=== PATIENT | male | born 1965 | race Caucasian/White ===

== ENCOUNTER 2023-03-03 19:59 | Emergency (ER) | payer OTHER ==
[2023-03-03 21:02] LABS: BASOPHILS ABSOLUTE AUTO 0.04 K/uL (0.02-0.10); BASOPHILS PERCENT AUTO 0.3 % (0.0-0.5); EOSINOPHILS ABSOLUTE AUTO 0.27 K/uL (0.04-0.40); EOSINOPHILS PERCENT AUTO 2.1 % (1.0-5.0); HEMATOCRIT 47.7 % (40.0-54.0); HEMOGLOBIN 16.5 g/dL (13.0-18.0); LYMPHOCYTES ABSOLUTE AUTO 1.22 K/uL (1.50-4.00); LYMPHOCYTES PERCENT AUTO 9.5 % (20.0-40.0); MEAN CORPUSCULAR HEMOGLOBIN 30.8 pg (27.0-32.0); MEAN CORPUSCULAR HGB CONC 34.6 g/dL (31.0-35.0); MEAN CORPUSCULAR VOLUME 89 fL (76-96); MONOCYTES PERCENT AUTO 9.3 % (3.0-10.0); NEUTROPHILS ABSOLUTE AUTO 10.11 K/uL (2.00-7.50); NEUTROPHILS PERCENT AUTO 78.8 % (45.0-70.0); PLATELET COUNT,PLT 215 K/uL (150-400); RED BLOOD CELL COUNT 5.35 M/uL (4.50-6.50); RED CELL DISTRIBUTION WIDTH 12.8 % (11.0-16.0); WHITE BLOOD CELL COUNT,WBC 12.8 K/uL (4.0-11.0)
[2023-03-03 21:21] LABS: AMYLASE 48 U/L (25-115); LIPASE 25 U/L (16-77)
[2023-03-03 21:26] LABS: A/G RATIO 1.1 (0.8-2.0); ALBUMIN 3.9 g/dL (3.4-5.0); ANION GAP 12.2 mmol/L (5.0-15.0); BUN/CREATININE RATIO 11.3 (6-25); CALCIUM 9.5 mg/dL (8.5-10.1); CARBON DIOXIDE,CO2 29.6 mmol/L (21.0-32.0); CREATININE 1.33 mg/dL (0.70-1.30); EST CRCL DRUG DOSING (CG) 62.51 mL/min; POTASSIUM,K 3.8 mmol/L (3.5-5.1); PROTEIN TOTAL,TP 7.5 g/dL (6.4-8.2)
[2023-03-03 21:50] LABS: APPEARANCE,URINE SLIGHTLY CLOUDY (CLEAR); BILIRUBIN,URINE NEGATIVE (NEGATIVE); COLOR,URINE YELLOW; GLUCOSE,URINE NEGATIVE (NEGATIVE); KETONES,URINE NEGATIVE (NEGATIVE); PH,URINE 5.5 (5.0-8.0); PROTEIN,URINE NEGATIVE (NEGATIVE)
[2023-03-03 21:51] LABS: LEUKOCYTE ESTERASE,URINE NEGATIVE (NEGATIVE); NITRITE,URINE NEGATIVE (NEGATIVE); OCCULT BLOOD,URINE TRACE-INTACT (NEGATIVE); UROBILINOGEN,URINE 0.2 E.U./dL (0.2-1.0)
[2023-03-03 21:52] LABS: RBC,URINE 0-5 /HPF; WBC,URINE 0-5 /HPF
[2023-03-03] MEDS: Ketorolac 30 MG/ML SDV IM ONE (22:45)
[2023-03-03] MEDS ORDERED: traMADol 50 MG Tab ONE (23:00)
[2023-03-03] MEDS ORDERED: Amoxicillin/Clavulanate K 875-125 MG Tab ONE (23:00)
== END 2023-03-03 23:45 | disposition home or self-care (01) ==
LOC: LB.ED 19:59
DX: K57.32 Diverticulitis of large intestine without perforation or abscess without bleeding (principal); Z79.899 Other long term (current) drug therapy
CPT/HCPCS: 36415; 74176; 80053; 81001; 82150; 83690; 84484; 85025; 99283; 99284; A9270-GY

== ENCOUNTER 2023-08-12 10:26 | Emergency (ER) | payer OTHER ==
[2023-08-12] MEDS ORDERED: hydrOXYzine HCl 25 MG Tab PO ONE (11:07)
[2023-08-12] MEDS ORDERED: hydrOXYzine HCl 25 MG Tab PO SCH (11:15)
== END 2023-08-12 12:23 | disposition home or self-care (01) ==
LOC: LB.ED 10:26
DX: F41.9 Anxiety disorder, unspecified (principal)
CPT/HCPCS: 99283; A9270-GY

== ENCOUNTER 2023-09-16 23:34 | Inpatient (IN) | payer OTHER ==
[2023-09-16] MEDS ORDERED: Sodium Chloride 0.9% 10 ML Syringe FLUSH PRN (23:46)
[2023-09-17 00:03] LABS: BASOPHILS ABSOLUTE AUTO 0.02 K/uL (0.02-0.10); BASOPHILS PERCENT AUTO 0.3 % (0.0-0.5); EOSINOPHILS ABSOLUTE AUTO 0.18 K/uL (0.04-0.40); EOSINOPHILS PERCENT AUTO 2.6 % (1.0-5.0); HEMATOCRIT 51.7 % (40.0-54.0); HEMOGLOBIN 17.3 g/dL (13.0-18.0); LYMPHOCYTES ABSOLUTE AUTO 1.35 K/uL (1.50-4.00); LYMPHOCYTES PERCENT AUTO 19.3 % (20.0-40.0); MEAN CORPUSCULAR HEMOGLOBIN 29.9 pg (27.0-32.0); MEAN CORPUSCULAR HGB CONC 33.5 g/dL (31.0-35.0); MEAN CORPUSCULAR VOLUME 89 fL (76-96); MEAN PLATELET VOLUME 10.2 fL (6.0-10.0); MONOCYTES ABSOLUTE AUTO 0.99 K/uL (0.20-0.80); MONOCYTES PERCENT AUTO 14.2 % (3.0-10.0); NEUTROPHILS ABSOLUTE AUTO 4.45 K/uL (2.00-7.50); NEUTROPHILS PERCENT AUTO 63.6 % (45.0-70.0); PLATELET COUNT,PLT 190 K/uL (150-400); RED BLOOD CELL COUNT 5.78 M/uL (4.50-6.50); RED CELL DISTRIBUTION WIDTH 13.2 % (11.0-16.0)
[2023-09-17] MEDS: Morphine 4 MG/ML VIAL IVPUSH ONE (00:15)
[2023-09-17 00:18] LABS: A/G RATIO 1.2 (0.8-2.0); ALBUMIN 3.9 g/dL (3.4-5.0); ANION GAP 13.3 mmol/L (5.0-15.0); BUN/CREATININE RATIO 11.4 (6-25); CALCIUM 8.7 mg/dL (8.5-10.1); CARBON DIOXIDE,CO2 26.4 mmol/L (21.0-32.0); CREATININE 1.4 mg/dL (0.70-1.30); EST CRCL DRUG DOSING (CG) 59.38 mL/min; POTASSIUM,K 3.7 mmol/L (3.5-5.1); PROTEIN TOTAL,TP 7.2 g/dL (6.4-8.2)
[2023-09-17] MEDS: Ondansetron 4 MG/2 ML SDV IVPUSH ONE (00:21)
[2023-09-17] MEDS: Ondansetron 4 MG/2 ML SDV ONE (00:25)
[2023-09-17] MEDS: Morphine 4 MG/ML VIAL ONE (00:26)
[2023-09-17] MEDS: fentaNYL 100 MCG/2 ML SDV IVPUSH ONE (00:27)
[2023-09-17] MEDS: fentaNYL 100 MCG/2 ML SDV ONE (00:32)
[2023-09-17] MEDS: Sodium Chloride 0.9% 1,000 ML IV SCH (00:33)
[2023-09-17] MEDS: Iopamidol 612 MG/ML 100 ML Bottle IV PRN (00:55)
[2023-09-17] MEDS: Sodium Chloride 0.9% 50 ML SDV FLUSH SCH (00:55)
[2023-09-17] MEDS ORDERED: Benzocaine 20% Oral Spray 59.2 ML Canister MUCMEM ONE (01:12)
[2023-09-17] MEDS ORDERED: fentaNYL 100 MCG/2 ML SDV IVPUSH SCH (01:15)
[2023-09-17] MEDS ORDERED: Benzocaine/Butamben/Tetracaine Top Spray 56 GM Canister TOP SCH (02:15)
[2023-09-17] MEDS: Benzocaine/Butamben/Tetracaine Top Spray 56 GM Canister TOP PRN (02:16)
[2023-09-17] MEDS: Lactated Ringers 1,000 ML IV SCH (03:45)
[2023-09-17 17:05] LABS: APPEARANCE,URINE CLEAR (CLEAR); BILIRUBIN,URINE NEGATIVE (NEGATIVE); COLOR,URINE YELLOW; GLUCOSE,URINE NEGATIVE (NEGATIVE); KETONES,URINE NEGATIVE (NEGATIVE); LEUKOCYTE ESTERASE,URINE NEGATIVE (NEGATIVE); NITRITE,URINE NEGATIVE (NEGATIVE); OCCULT BLOOD,URINE SMALL (NEGATIVE); PH,URINE 5.5 (5.0-8.0); PROTEIN,URINE NEGATIVE (NEGATIVE); UROBILINOGEN,URINE 0.2 E.U./dL (0.2-1.0)
[2023-09-17 17:06] LABS: WBC,URINE NOT SEEN /HPF
[2023-09-17] MEDS: HYDROmorphone 2 MG/ML Syringe IV PRN (17:46)
[2023-09-17] MEDS ORDERED: Ondansetron 4 MG/2 ML SDV IVPUSH PRN (18:06)
[2023-09-18] MEDS: LORazepam 2 MG/ML SDV IVPUSH PRN (02:49)
[2023-09-18] MEDS: Ketorolac 30 MG/ML SDV IVPUSH ONE (11:35)
[2023-09-18] MEDS: Pantoprazole 40 MG Vial IVPUSH SCH (11:37)
[2023-09-19] MEDS: Ketorolac 60 MG/2 ML SDV IVPUSH ONE (04:19)
[2023-09-19 10:45] LABS: HEMATOCRIT 47.8 % (40.0-54.0); HEMOGLOBIN 15.6 g/dL (13.0-18.0); MEAN CORPUSCULAR HEMOGLOBIN 29.9 pg (27.0-32.0); MEAN CORPUSCULAR HGB CONC 32.6 g/dL (31.0-35.0); MEAN PLATELET VOLUME 9.5 fL (6.0-10.0); RED BLOOD CELL COUNT 5.21 M/uL (4.50-6.50); RED CELL DISTRIBUTION WIDTH 12.2 % (11.0-16.0); WHITE BLOOD CELL COUNT,WBC 9.3 K/uL (4.0-11.0)
[2023-09-19] MEDS: Dextrose 5%-0.9% NaCl with KCl 1,000 ML IV SCH (10:54)
[2023-09-19] MEDS: Bisacodyl 10 MG Supp RECTAL SCH (10:55)
[2023-09-19 11:16] LABS: A/G RATIO 1.2 (0.8-2.0); ALBUMIN 3.3 g/dL (3.4-5.0); ANION GAP 16.5 mmol/L (5.0-15.0); BUN/CREATININE RATIO 11.5 (6-25); CALCIUM 8.2 mg/dL (8.5-10.1); CARBON DIOXIDE,CO2 26.1 mmol/L (21.0-32.0); CREATININE 1.13 mg/dL (0.70-1.30); EST CRCL DRUG DOSING (CG) 73.57 mL/min; POTASSIUM,K 3.6 mmol/L (3.5-5.1); PROTEIN TOTAL,TP 6.1 g/dL (6.4-8.2)
[2023-09-19] MEDS: Docusate Sodium 100 MG Cap PO SCH (18:15)
[2023-09-19] MEDS: Docusate Sodium 100 MG Cap ONE (21:07)
[2023-09-20] MEDS: Ketorolac 60 MG/2 ML SDV IVPUSH ONE (20:45)
[2023-09-20] MEDS: Tamsulosin 0.4 MG Cap.ER PO ONE (20:47)
[2023-09-21 08:45] LABS: HEMATOCRIT 50.3 % (40.0-54.0); HEMOGLOBIN 15.7 g/dL (13.0-18.0); MEAN CORPUSCULAR HEMOGLOBIN 29.7 pg (27.0-32.0); MEAN CORPUSCULAR HGB CONC 31.2 g/dL (31.0-35.0); MEAN PLATELET VOLUME 10.2 fL (6.0-10.0); RED BLOOD CELL COUNT 5.28 M/uL (4.50-6.50); RED CELL DISTRIBUTION WIDTH 12.4 % (11.0-16.0)
[2023-09-21 09:00] LABS: A/G RATIO 1.1 (0.8-2.0); ALBUMIN 3.4 g/dL (3.4-5.0); ANION GAP 10.2 mmol/L (5.0-15.0); BUN/CREATININE RATIO 9.7 (6-25); C-REACTIVE PROTEIN HIGH SENSI 12.09 mg/dL (0.00-3.00); CALCIUM 8.8 mg/dL (8.5-10.1); CARBON DIOXIDE,CO2 30.6 mmol/L (21.0-32.0); CREATININE 1.13 mg/dL (0.70-1.30); EST CRCL DRUG DOSING (CG) 73.57 mL/min; POTASSIUM,K 3.8 mmol/L (3.5-5.1); PROTEIN TOTAL,TP 6.5 g/dL (6.4-8.2)
== END 2023-09-21 12:34 | disposition home or self-care (01) | DRG 390 ==
LOC: LB.ED 23:34 → LB.MS 09-17 01:52 → UNDOADMIN 09-17 02:05
PROVIDERS: ADMIT Surgery; ATTEND Surgery
PROC: 0D9670Z Drainage of Stomach with Drainage Device, Via Natural or Artificial Opening (ICD-10-PCS; principal; 2023-09-17)
DX: K56.609 Unspecified intestinal obstruction, unspecified as to partial versus complete obstruction (principal); N20.0 Calculus of kidney; F32.A Depression, unspecified; Z87.19 Personal history of other diseases of the digestive system; Z88.8 Allergy status to other drugs, medicaments and biological substances; Z79.899 Other long term (current) drug therapy; Z98.890 Other specified postprocedural states; Z98.1 Arthrodesis status
CPT/HCPCS: 36415; 43752; 74018; 74176; 74177; 80053; 81001; 83605; 83690; 85025; 85027; 86141; 96361; 96374; 96375; 99222; 99232; 99239; 99285-25; A9270-GY; C9113; J1170; J1885; J2060; J2270; J2405; J3010; J3480; J3490; J7030; J7120; Q9967

== ENCOUNTER 2023-10-02 11:50 | Emergency (ER) | payer OTHER ==
[2023-10-02] MEDS: HYDROmorphone 2 MG/ML Syringe IVPUSH ONE (12:25)
[2023-10-02] MEDS: Ondansetron 4 MG/2 ML SDV IVPUSH ONE ×2 (12:27→16:43)
[2023-10-02] MEDS: Sodium Chloride 0.9% 1,000 ML IV ONE (12:34)
[2023-10-02 12:52] LABS: BASOPHILS ABSOLUTE AUTO 0.04 K/uL (0.02-0.10); BASOPHILS PERCENT AUTO 0.6 % (0.0-0.5); EOSINOPHILS ABSOLUTE AUTO 0.34 K/uL (0.04-0.40); EOSINOPHILS PERCENT AUTO 4.7 % (1.0-5.0); HEMATOCRIT 43.4 % (40.0-54.0); HEMOGLOBIN 15.1 g/dL (13.0-18.0); LYMPHOCYTES ABSOLUTE AUTO 1.18 K/uL (1.50-4.00); LYMPHOCYTES PERCENT AUTO 16.5 % (20.0-40.0); MEAN CORPUSCULAR HEMOGLOBIN 29.6 pg (27.0-32.0); MEAN CORPUSCULAR HGB CONC 34.8 g/dL (31.0-35.0); MEAN CORPUSCULAR VOLUME 85 fL (76-96); MEAN PLATELET VOLUME 9.7 fL (6.0-10.0); MONOCYTES PERCENT AUTO 9.8 % (3.0-10.0); NEUTROPHILS PERCENT AUTO 68.4 % (45.0-70.0); PLATELET COUNT,PLT 220 K/uL (150-400); RED CELL DISTRIBUTION WIDTH 12.7 % (11.0-16.0); WHITE BLOOD CELL COUNT,WBC 7.2 K/uL (4.0-11.0)
[2023-10-02] MEDS: Morphine 4 MG/ML VIAL IVPUSH ONE (13:01)
[2023-10-02 13:11] LABS: A/G RATIO 1.2 (0.8-2.0); ALBUMIN 3.5 g/dL (3.4-5.0); ANION GAP 12.2 mmol/L (5.0-15.0); BILIRUBIN TOTAL 0.8 mg/dL (0.0-1.0); CALCIUM 8.5 mg/dL (8.5-10.1); CARBON DIOXIDE,CO2 28.1 mmol/L (21.0-32.0); CREATININE 1.45 mg/dL (0.70-1.30); EST CRCL DRUG DOSING (CG) 53.72 mL/min; POTASSIUM,K 4.3 mmol/L (3.5-5.1); PROTEIN TOTAL,TP 6.4 g/dL (6.4-8.2)
[2023-10-02] MEDS: Ketorolac 30 MG/ML SDV IVPUSH ONE (13:22)
[2023-10-02] MEDS: Tamsulosin 0.4 MG Cap.ER PO ONE (13:43)
[2023-10-02] MEDS: Tamsulosin 0.4 MG Cap.ER ONE (13:44)
[2023-10-02] MEDS: Sodium Chloride 0.9% 1,000 ML IV SCH (14:06)
[2023-10-02] MEDS: HYDROmorphone 2 MG/ML Syringe IVPUSH PRN (14:36)
[2023-10-02] MEDS ORDERED: LORazepam 2 MG/ML SDV IM ONE (16:22)
[2023-10-02] MEDS: LORazepam 2 MG/ML SDV ONE (16:29)
[2023-10-02] MEDS: LORazepam 2 MG/ML SDV IVPUSH ONE (16:29)
[2023-10-02] MEDS: HYDROmorphone 2 MG/ML Syringe ONE ×2 (16:40→16:41)
[2023-10-02] MEDS: LORazepam 1 MG Tab ONE (16:40)
[2023-10-02] MEDS: HYDROmorphone 2 MG Tab ONE ×2 (16:41→16:54)
[2023-10-02 16:45] LABS: APPEARANCE,URINE CLEAR (CLEAR); BILIRUBIN,URINE NEGATIVE (NEGATIVE); COLOR,URINE YELLOW; GLUCOSE,URINE NEGATIVE (NEGATIVE); KETONES,URINE NEGATIVE (NEGATIVE); LEUKOCYTE ESTERASE,URINE NEGATIVE (NEGATIVE); NITRITE,URINE NEGATIVE (NEGATIVE); OCCULT BLOOD,URINE MODERATE (NEGATIVE); PH,URINE 6.5 (5.0-8.0); PROTEIN,URINE NEGATIVE (NEGATIVE); UROBILINOGEN,URINE 0.2 E.U./dL (0.2-1.0)
[2023-10-02 16:48] LABS: RBC,URINE 40-50 /HPF; WBC,URINE 0-5 /HPF
[2023-10-02] MEDS: Ondansetron 4 MG/2 ML SDV ONE (16:53)
[2023-10-02] MEDS: Morphine 4 MG/ML VIAL IVPUSH SCH (16:53)
[2023-10-02] MEDS ORDERED: LORazepam 1 MG Tab ONE (17:00)
[2023-10-02] MEDS ORDERED: HYDROmorphone 2 MG Tab ONE (17:00)
== END 2023-10-02 17:14 | disposition home or self-care (01) ==
LOC: LB.ED 11:50
DX: N20.1 Calculus of ureter (principal)
CPT/HCPCS: 36415; 74176; 80053; 81001; 83690; 85025; 96361; 96374; 96375; 96376; 99284; A9270; J1170; J1885; J2060; J2270; J2405; J7030

== ENCOUNTER 2023-11-05 09:14 | Emergency (ER) | payer OTHER ==
[2023-11-05] MEDS: Ketorolac 60 MG/2 ML SDV IM ONE (09:53)
[2023-11-05] MEDS ORDERED: Acetaminophen/HYDROcodone 325-5 MG Tab ONE (10:15)
== END 2023-11-05 10:26 | disposition home or self-care (01) ==
LOC: LB.ED 09:14
DX: S49.91XA Unspecified injury of right shoulder and upper arm, initial encounter (principal); Z88.8 Allergy status to other drugs, medicaments and biological substances; Z86.19 Personal history of other infectious and parasitic diseases; W18.40XA Slipping, tripping and stumbling without falling, unspecified, initial encounter
CPT/HCPCS: 73030; 96372; 99283; A9270; J1885

== ENCOUNTER 2024-04-21 04:07 | Emergency (ER) | payer OTHER ==
[2024-04-21] MEDS: Morphine 10 MG/ML SDV SUBCUT ONE (04:40)
[2024-04-21] MEDS ORDERED: Morphine 2 MG/ML SYRINGE SUBCUT SCH (04:45)
== END 2024-04-21 05:00 | disposition home or self-care (01) ==
LOC: LB.ED 04:07
DX: G89.29 Other chronic pain (principal); M25.511 Pain in right shoulder; Z79.899 Other long term (current) drug therapy; Z88.8 Allergy status to other drugs, medicaments and biological substances
CPT/HCPCS: 96372; 99283; J2270